=== PATIENT | male | born 1955 | race Caucasian/White ===

== ENCOUNTER 2018-12-09 14:08 | Emergency (ER) | payer BC ==
--- NOTE | 2018-12-09 14:25 | EDM.PDOC ---
ED HPI GENERAL MEDICAL PROBLEM - General Chief Complaint: Back Pain or Injury Stated Complaint: BACK PAIN Time Seen by Provider: 12/09/18 14:10 Source of Information: Reports: Patient History Limitations: Reports: No Limitations - History of Present Illness INITIAL COMMENTS - FREE TEXT/NARRATIVE: History of present illness: []Patient has had back pain from the base of his neck to the tip of his toes since 2006 when he was working on transmission in his car and injured his back. He is followed by Dr. Ngo and did not go to work yesterday because of the worsening pain went to her office today and found out that she was out for 2 weeks. He is requesting a work note. Patient has no new symptoms denies any incontinence. Review of systems: As per history of present illness and below otherwise all systems reviewed and negative. Past medical history: As per history of present illness and as reviewed below otherwise noncontributory. Surgical history: As per history of present illness and as reviewed below otherwise noncontributory. Social history: No reported history of drug or alcohol abuse. Family history: As per history of present illness and as reviewed below otherwise noncontributory. Physical exam: General: Well developed, well nourished in NAD HEENT: Atraumatic, normocephalic, pupils reactive, negative for conjunctival pallor or scleral icterus, mucous membranes moist, throat clear, neck supple, nontender, trachea midline. Lungs: Clear to auscultation, breath sounds equal bilaterally, chest nontender. Heart: S1S2, regular, negative for clicks, rubs, or JVD. Abdomen: NABS, Soft, nondistended, nontender. Negative for masses or hepatosplenomegaly. Negative for costovertebral tenderness. Pelvis: Stable nontender. Genitourinary: Deferred. Rectal: Deferred. Extremities: Atraumatic, negative for cords or calf pain. Neurovascular unremarkable. Neuro: Awake, alert, oriented. Cranial nerves II through XII unremarkable. Cerebellum unremarkable. Motor and sensory unremarkable throughout. Exam nonfocal. Skin:warm and dry Diagnostics: None Therapeutics: Toradol, Norflex ED Course: imProved Impression: Chronic back pain Prescriptions: Tramadol Plan: Follow-up with Dr. Shah or primary care. Definitive disposition and diagnosis as appropriate pending reevaluation and review of above. back Pain Score (Numeric/FACES): 10 - Related Data Allergies Allergy/AdvReac Type Severity Reaction Status Date / Time No Known Allergies Allergy Verified 12/09/18 14:15 Home Meds: Home Meds Lisinopril 40 mg PO DAILY 12/09/18 [History] Sildenafil Citrate [Sildenafil] 25 mg PO ASDIRECTED PRN MDD 1 12/09/18 [History] traMADol HCl [Tramadol HCl] 50 mg PO DAILY 12/09/18 [History] Past Medical History Cardiovascular History: Reports: High Cholesterol, Hypertension - Past Surgical History Cardiovascular Surgical History: Reports: Other (See Below) Other Cardiovascular Surgeries/Procedures: angioplasty Musculoskeletal Surgical History: Reports: Arthroscopic Knee, Other (See Below) Other Musculoskeletal Surgeries/Procedures:: arthroscopic right knee surgery, open left knee surgery. ED ROS GENERAL - Review of Systems Review Of Systems: ROS reveals no pertinent complaints other than HPI. ED EXAM,LOWER BACK PAIN/INJURY - Physical Exam Exam: See Below (See history of present illness) Course - Vital Signs Last Recorded V/S: Last Vital Signs Temp 97.6 F 12/09/18 14:16 Pulse 84 12/09/18 14:16 Resp 18 12/09/18 14:16 BP 160/86 H 12/09/18 14:16 Pulse Ox 98 12/09/18 14:16 - Orders/Labs/Meds Orders: Active Orders 24 hr Category Date Time Status Orphenadrine [Norflex] Med 12/09/18 14:45 Active 60 mg IM Q12H Medication Orders Orphenadrine Citrate (Norflex) 60 mg IM Q12H RILEY Last Admin: 12/09/18 15:06 Dose: 60 mg Meds: Medications Generic Name Dose Route Start Last Admin Trade Name Freq PRN Reason Stop Dose Admin Orphenadrine Citrate 60 mg 12/09/18 14:45 12/09/18 15:06 Norflex IM 60 mg Q12H RILEY Administration Discontinued Medications Generic Name Dose Route Start Last Admin Trade Name Freq PRN Reason Stop Dose Admin Ketorolac Tromethamine 60 mg 12/09/18 14:32 12/09/18 14:45 Toradol IM 12/09/18 14:33 60 mg ONETIME ONE Administration Departure - Departure Time of Disposition: 15:39 Disposition: Home, Self-Care 01 Condition: Good Clinical Impression: Chronic back pain - Discharge Information *PRESCRIPTION DRUG MONITORING PROGRAM REVIEWED*: No *COPY OF PRESCRIPTION DRUG MONITORING REPORT IN PATIENT [place]: No Referrals: Amira Ni PA [Primary Care Provider] - Forms: ED Department Discharge Additional Instructions: The following information is given to patients seen in the emergency department who are being discharged to home. This information is to outline your options for follow-up care. We provide all patients seen in our emergency department with a follow-up referral. The need for follow-up, as well as the timing and circumstances, are variable depending upon the specifics of your emergency department visit. If you don't have a primary care physician on staff, we will provide you with a referral. We always advise you to contact your personal physician following an emergency department visit to inform them of the circumstance of the visit and for follow-up with them and/or the need for any referrals to a consulting specialist. The emergency department will also refer you to a specialist when appropriate. This referral assures that you have the opportunity for follow-up care with a specialist. All of these measure are taken in an effort to provide you with optimal care, which includes your follow-up. Under all circumstances we always encourage you to contact your private physician who remains a resource for coordinating your care. When calling for follow-up care, please make the office aware that this follow-up is from your recent emergency room visit. If for any reason you are refused follow-up, please contact the [facility] Emergency Department at and asked to speak to the emergency department charge nurse. [facility] [address] [place] [id number] - My Orders Last 24 Hours: My Active Orders 12/09/18 14:45 Orphenadrine [Norflex] 60 mg IM Q12H - Assessment/Plan Last 24 Hours: My Active Orders 12/09/18 14:45 Orphenadrine [Norflex] 60 mg IM Q12H
[2018-12-09] MEDS ORDERED: Ketorolac 60 MG/2 ML SDV IM ONE (14:32)
== END 2018-12-09 15:50 | disposition home or self-care (01) ==
LOC: MW.ED 14:08
DX: G89.29 Other chronic pain (principal); M54.9 Dorsalgia, unspecified; I10 Essential (primary) hypertension; E78.00 Pure hypercholesterolemia, unspecified; Z79.899 Other long term (current) drug therapy; F17.210 Nicotine dependence, cigarettes, uncomplicated
CPT/HCPCS: 96372; 99283; J1885; J2360

== ENCOUNTER 2019-04-03 11:02 | Day surgery (SDC) | payer BC ==
[2019-04-03] MEDS ORDERED: Ropivacaine 0.5% 5 MG/ML 30 ML SDV ONE (11:12)
[2019-04-03] MEDS ORDERED: Lidocaine 2% 5 ML SDV ONE (11:12)
[2019-04-03] MEDS ORDERED: Betamethasone Acetate/Betamethasone Sod Phosphate 30 MG/5 ML MDV ONE (11:12)
[2019-04-03] MEDS ORDERED: Iopamidol 200-M 10 ML vial ITHECAL ONE (11:13)
--- NOTE | 2019-04-03 20:01 | OR ---
SURGEON: Raquel Jules D.O. DATE OF PROCEDURE: 04/03/2019 PRIMARY SURGEON: Raquel Jules D.O. OPERATING ROOM STAFF PRESENT: 1. Ubaldo Hebert RN. 2. Peace Robles RN. 3. RT Jasen. WOUND CLASS: I. PREOPERATIVE DIAGNOSES: 1. Lumbar degenerative disk disease, L3-4, L4-5, and L5-S1. 2. Lumbar spinal stenosis. 3. Lumbar sacral spondylosis 4. lumbar scoliosis. Postoperative Diagnoses: same PREOPERATIVE PAIN: 8/10. POSTOPERATIVE PAIN: 0/10. FOLLOWUP: In the Pain Clinic in 3 weeks. SCREENING QUESTIONS: The patient answered "no" to all of the following questions: 1. Are you allergic to latex? 2. Do you have a bleeding disorder? 3. Do you have any current local or systemic infections? 4. Are you taking any anti-inflammatories or blood thinners? 5. Do you have any joint replacements, heart valve replacements, or a pacemaker? DESCRIPTION OF PROCEDURE: The patient had the procedure thoroughly explained including all possible risks, benefits and alternatives. Consent was signed in my clinic indicating understanding and willingness to proceed. The patient presented to [facility] [place] and was escorted to the dressing room to disrobe and change into a hospital gown. Preoperative vital signs were taken and stable. The patient reported that Valium was taken prior to the procedure. The patient was brought back to the procedure room and placed in the prone position on the procedure room table. A pillow was placed under the hips in order to flatten the lumbar lordosis. The back was prepped with ChloraPrep and sterilely draped. All personnel in the operating room were dressed in appropriate attire including surgical scrubs, head and shoe covers. This was to ensure sterility while in the treatment room. During the time fluoroscopy was in use, all personnel in the operating room wore lead myrick with thyroid collars. Sterile technique was used throughout the procedure. The patient was awake and conversant throughout the procedure. There was no evidence of infection at the site of needle insertion. Skeletal landmarks were identified under fluoroscopy for the caudal epidural. Skin was anesthetized with 2% lidocaine with a sterile 27-gauge 1.5 inch needle. Then a 20-gauge Tuohy epidural needle was placed in the epidural space with loss of resistance technique under fluoroscopic guidance. No heme, cerebrospinal fluid, or paresthesias were noted. Isovue-200 contrast dye was injected in 0.2 cubic centimeter increments and seen to outline the epidural space in both AP and lateral views. There was no intravascular flow pattern observed under live fluoroscopy. Then 12 milligrams of Celestone was slowly injected after negative aspiration. The patient tolerated the procedure well. Vital signs were stable during and after the procedure. The staff escorted the patient to the recovery area and the patient was released in stable condition after a brief stay in the recovery room monitored by the nurse. The patient was given both oral and written discharge and follow up instructions with recommendation to follow up given for 2-3 weeks. The patient voiced understanding including understanding of those signs and symptoms that would require emergency care. The patient knows how to contact the office if there are any additional problems or questions in the meantime. CARLOS EDUARDO / SUNSHINE /[phone] JANIE
== END 2019-04-03 13:03 ==
LOC: MW.SDS 11:02
PROVIDERS: ATTEND Anesthesiology
DX: M51.17 Intervertebral disc disorders with radiculopathy, lumbosacral region (principal); M47.27 Other spondylosis with radiculopathy, lumbosacral region; M48.07 Spinal stenosis, lumbosacral region; M41.86 Other forms of scoliosis, lumbar region; M12.88 Other specific arthropathies, not elsewhere classified, other specified site; M79.18 Myalgia, other site; M50.90 Cervical disc disorder, unspecified, unspecified cervical region; I10 Essential (primary) hypertension; I44.7 Left bundle-branch block, unspecified; I42.9 Cardiomyopathy, unspecified; E78.5 Hyperlipidemia, unspecified; Z87.891 Personal history of nicotine dependence; Z79.899 Other long term (current) drug therapy
CPT/HCPCS: 62323; J0702; J2795; Q9966; J2001

== ENCOUNTER 2019-10-26 07:56 | Emergency (ER) | payer BC ==
--- NOTE | 2019-10-26 08:14 | EDM.PDOC ---
ED HPI GENERAL MEDICAL PROBLEM - General Chief Complaint: Back Pain or Injury Stated Complaint: HURT BACK Time Seen by Provider: 10/26/19 08:05 - History of Present Illness INITIAL COMMENTS - FREE TEXT/NARRATIVE: HISTORY AND PHYSICAL: History of present illness: Patient 64-year-old male with history of chronic back pain his head spinal fusion presents status post fall which he slipped on the ice injuring his lower back and numbness weakness incontinence or retention bowel or bladder Review of systems: As per history of present illness and below otherwise all systems reviewed and negative. Past medical history: As per history of present illness and as reviewed below otherwise noncontributory. Surgical history: As per history of present illness and as reviewed below otherwise noncontributory. Social history: No reported history of drug or alcohol abuse. Family history: As per history of present illness and as reviewed below otherwise noncontributory. Physical exam: HEENT: Atraumatic, normocephalic, pupils reactive, negative for conjunctival pallor or scleral icterus, mucous membranes moist, throat clear, neck supple, nontender, trachea midline. Lungs: Clear to auscultation, breath sounds equal bilaterally, chest nontender. Heart: S1S2, regular, negative for clicks, rubs, or JVD. Abdomen: Soft, nondistended, nontender. Negative for masses or hepatosplenomegaly. Negative for costovertebral tenderness. Pelvis: Stable nontender. Genitourinary: Deferred. Rectal: Deferred. Extremities: Atraumatic, negative for cords or calf pain. Neurovascular unremarkable. Neuro: Awake, alert, oriented. Cranial nerves II through XII unremarkable. Cerebellum unremarkable. Motor and sensory unremarkable throughout. Exam nonfocal. Back: Patient paravertebral tenderness level lumbar spinal vertebral body or point tenderness motor and sensory inferiorly are unremarkable patient is able stand on his toes back on his heels Diagnostics: X-ray lumbosacral spine Therapeutics: None Impression: #1 observation status post fall #2 lumbar strain/contusion #3 history of chronic back Definitive disposition and diagnosis as appropriate pending reevaluation and review of above. back Pain Score (Numeric/FACES): 9 - Related Data Allergies Allergy/AdvReac Type Severity Reaction Status Date / Time No Known Allergies Allergy Verified 12/09/18 14:15 Home Meds: Home Meds Sildenafil Citrate [Sildenafil] 25 mg PO ASDIRECTED PRN MDD 1 12/09/18 [History] Hydrocodone/Acetaminophen [Hydrocodon-Acetaminoph 7.5-325] 10/26/19 [History] Past Medical History HEENT History: Reports: None Cardiovascular History: Reports: High Cholesterol, Hypertension Respiratory History: Reports: None Gastrointestinal History: Reports: None Genitourinary History: Reports: None Musculoskeletal History: Reports: Back Pain, Chronic Neurological History: Reports: None Psychiatric History: Reports: None Endocrine/Metabolic History: Reports: None Hematologic History: Reports: None Immunologic History: Reports: None Oncologic (Cancer) History: Reports: None Dermatologic History: Reports: None - Infectious Disease History Infectious Disease History: Reports: None - Past Surgical History Cardiovascular Surgical History: Reports: Other (See Below) Other Cardiovascular Surgeries/Procedures: angioplasty Musculoskeletal Surgical History: Reports: Arthroscopic Knee, Other (See Below) Other Musculoskeletal Surgeries/Procedures:: arthroscopic right knee surgery, open left knee surgery. Social & Family History - Family History Family Medical History: Noncontributory - Caffeine Use Caffeine Use: Reports: Coffee ED ROS GENERAL - Review of Systems Review Of Systems: Comprehensive ROS is negative, except as noted in HPI. ED EXAM, GENERAL - Physical Exam Exam: See Below (See dictation) Course - Vital Signs Text/Narrative:: Patient's x-ray demonstrates a intrapedicular screw fracture at the S1 level attempts to reach primary surgeon [id number] were unsuccessful I did discuss with local orthopedic surgery who agrees with rest pain medication within neurologically intact patient with no other acute findings. I discussed all the patient understands and agrees he'll be discharged home on pain medication given a copy of his disc as well as a report from follow-up with this spine surgeon. He's returned for persistent or worsening pain any numbness weakness incontinence or retention bowel or bladder any other neurological signs or symptoms as discussed Last Recorded V/S: Last Vital Signs Temp 36.6 C 10/26/19 08:12 Pulse 108 H 10/26/19 08:12 Resp 16 10/26/19 08:12 BP 153/82 H 10/26/19 08:12 Pulse Ox 99 10/26/19 08:12 - Orders/Labs/Meds Meds: Medications Discontinued Medications Generic Name Dose Route Start Last Admin Trade Name Freq PRN Reason Stop Dose Admin Hydrocodone Bitart/Acetaminophen 1 tab 10/26/19 09:11 [place] 325-10 Mg PO 10/26/19 09:12 ONETIME ONE Departure - Departure Time of Disposition: 08:13 Disposition: Home, Self-Care 01 Condition: Good Clinical Impression: Fall, Back injury - Discharge Information Referrals: PCP,Unknown [Primary Care Provider] - Forms: ED Department Discharge Additional Instructions: The following information is given to patients seen in the emergency department who are being discharged to home. This information is to outline your options for follow-up care. We provide all patients seen in our emergency department with a follow-up referral. The need for follow-up, as well as the timing and circumstances, are variable depending upon the specifics of your emergency department visit. If you don't have a primary care physician on staff, we will provide you with a referral. We always advise you to contact your personal physician following an emergency department visit to inform them of the circumstance of the visit and for follow-up with them and/or the need for any referrals to a consulting specialist. The emergency department will also refer you to a specialist when appropriate. This referral assures that you have the opportunity for followup care with a specialist. All of these measure are taken in an effort to provide you with optimal care, which includes your followup. Under all circumstances we always encourage you to contact your private physician who remains a resource for coordinating your care. When calling for followup care, please make the office aware that this follow-up is from your recent emergency room visit. If for any reason you are refused follow-up, please contact the [facility] emergency department at and asked to speak to the emergency department charge nurse. Follow-up spine surgeon as discussed [place] as prescribed return as needed as discussed
--- NOTE | 2019-10-26 08:47 | CR ---
Indication: Fall. Surgery August 08, 2019. Technique: AP, lateral, and spot views of the lumbar spine were obtained. Comparison: April 22, 2019. Findings: Posterior intrapedicular screws and posterior fusion rods are now identified at L4-L5-S1. Intervertebral disc spacers are identified at these levels as well. A minimally displaced fracture through this screw of the bright S1 intrapedicular screw is identified. There is no evident other evidence of hardware failure. Impression: Fracture of the screw extending through the left S1 pedicle no postoperative change. Dictated by Macrina Altamirano MD @ Oct 26 2019 8:44AM Signed by Dr. Macrina Altamirano @ Oct 26 2019 8:46AM
[2019-10-26] MEDS ORDERED: Acetaminophen/HYDROcodone 325-10 MG Tab PO ONE (09:11)
== END 2019-10-26 09:55 | disposition home or self-care (01) ==
LOC: MW.ED 07:56
DX: S39.012A Strain of muscle, fascia and tendon of lower back, initial encounter (principal); G89.29 Other chronic pain; M54.9 Dorsalgia, unspecified; I10 Essential (primary) hypertension; W00.0XXA Fall on same level due to ice and snow, initial encounter
CPT/HCPCS: 72100; 99284; A9270; 99283

== ENCOUNTER 2021-03-08 04:29 | Emergency (ER) | payer BC ==
--- NOTE | 2021-03-08 04:34 | EDM.PDOC ---
ED HPI GENERAL MEDICAL PROBLEM - General Stated Complaint: LEFT HAND FINGER INJURY Time Seen by Provider: 03/08/21 04:30 Source of Information: Reports: Patient History Limitations: Reports: No Limitations - History of Present Illness INITIAL COMMENTS - FREE TEXT/NARRATIVE: 65 yo male presents for left index finger laceration 3 hours prior to arrival. He accidentally cut his left index finger with a chief executive officer knife. His tetanus is up-to-date. ROS: A 10-point review of systems, other than pertinent positives and negatives as stated per HPI, is otherwise negative Past medical history: No additional pertinent history Past Surgical history: No additional pertinent history Social history: No additional pertinent history Family history: No additional pertinent history PHYSICAL EXAM General: AOx4, GCS = 15, No distress HEENT: dry mucous membrane Neck: supple, no meningismus, no Kernig or Brudzinski Cardiac: S1S2 RRR Respiratory: CTAB, no crackles or rales, no wheezing Abdomen: Soft, nontender, no rebound or guarding, nondistended, no pulsatile mass. Back: nontender Musculoskeletal: NVI distally, superficial linear laceration to the left index finger distal phalanx on the palmar surface, normal range of motion at DIP/MCP/PIP joint. No tendon involvement. Neuro: No focal deficits left index finger Pain Score (Numeric/FACES): 5 - Related Data Allergies Allergy/AdvReac Type Severity Reaction Status Date / Time No Known Allergies Allergy Verified 03/08/21 04:41 Home Meds: Home Meds Sildenafil Citrate [Sildenafil] 25 mg PO ASDIRECTED PRN MDD 1 12/09/18 [History] Hydrocodone/Acetaminophen [Hydrocodon-Acetaminoph 7.5-325] 10/26/19 [History] Past Medical History HEENT History: Reports: None Cardiovascular History: Reports: High Cholesterol, Hypertension Respiratory History: Reports: None Gastrointestinal History: Reports: None Genitourinary History: Reports: None Musculoskeletal History: Reports: Back Pain, Chronic Neurological History: Reports: None Psychiatric History: Reports: None Endocrine/Metabolic History: Reports: None Hematologic History: Reports: None Immunologic History: Reports: None Oncologic (Cancer) History: Reports: None Dermatologic History: Reports: None - Infectious Disease History Infectious Disease History: Reports: None - Past Surgical History Cardiovascular Surgical History: Reports: Other (See Below) Other Cardiovascular Surgeries/Procedures: angioplasty Musculoskeletal Surgical History: Reports: Arthroscopic Knee, Other (See Below) Other Musculoskeletal Surgeries/Procedures:: arthroscopic right knee surgery, open left knee surgery. Social & Family History - Family History Family Medical History: No Pertinent Family History - Caffeine Use Caffeine Use: Reports: Coffee ED ROS GENERAL - Review of Systems Review Of Systems: See Below (see dictation) ED EXAM, GENERAL - Physical Exam Exam: See Below (see dictation) ED GENERAL MEDICAL PROCEDURES - Laceration/Wound Repair Left Distal Ventral Digit - 2nd (Index) Lac/wound length in cm: 2.6 Appearance: Superficial Distal NVT: Neuro & Vascular Intact, No Tendon Injury Anesthetic Type: Digital Local Anesthesia - Lidocaine (Xylocaine): 1% Plain Local Anesthetic Volume: 5cc Skin Prep: Saline Saline irrigation (cc's): 10 Exploration/Debridement/Repair: Wound Explored, Explored to Base Closed with: Sutures, Steri-Strips Suture Size: 6-0 # of Sutures: 4 Tetanus Status Addressed: No Complications: No Progress/Comments: dressed with bulky kerlex dressing Course - Vital Signs Last Recorded V/S: Last Vital Signs Temp 98.4 F 03/08/21 04:38 Pulse 104 H 03/08/21 04:38 Resp 16 03/08/21 04:38 BP 128/83 03/08/21 04:38 Pulse Ox 95 03/08/21 04:38 - Orders/Labs/Meds Orders: Active Orders 24 hr Category Date Time Status Lidocaine 1% [Xylocaine 1%] Med 03/08/21 04:41 Once 10 ml INJECT ONETIME ONE - Re-Assessments/Exams Free Text/Narrative Re-Assessment/Exam: 03/08/21 04:59 After suture repair in the ER, the patient improved and is currently stable for discharge. I performed a repeat exam and did not appreciate new abnormal findings. Patient exhibits normal vital signs and has a normal gait on road test. I advised the patient to return to the ER for reevaluation if symptoms worsened, including fever, worsening pain, or any other worrisome symptoms. I instructed the patient to follow up with their PCP within 10 days for suture removal. MEDICAL DECISION MAKING: I reviewed the patients past medical records, lab and radiographic findings. I discussed the case with the patient. My differential diagnosis included: finger laceration. Departure - Departure Time of Disposition: 05:03 Disposition: Home, Self-Care 01 Condition: Good Clinical Impression: Finger laceration - Discharge Information *PRESCRIPTION DRUG MONITORING PROGRAM REVIEWED*: Not Applicable *COPY OF PRESCRIPTION DRUG MONITORING REPORT IN PATIENT [place]AL[place]: Not Applicable Instructions: Laceration Care, Adult Referrals: PCP,None [Primary Care Provider] - 2 Weeks Forms: ED Department Discharge Additional Instructions: The need for follow-up, as well as the timing and circumstances, are variable depending upon the specifics of your emergency department visit. If you don't have a primary care physician on staff, we will provide you with a referral. We always advise you to contact your personal physician following an emergency department visit to inform them of the circumstance of the visit and for follow-up with them and/or the need for any referrals to a consulting specialist. The emergency department will also refer you to a specialist when appropriate. This referral assures that you have the opportunity for follow-up care with a specialist. All of these measure are taken in an effort to provide you with optimal care, which includes your follow-up. Under all circumstances we always encourage you to contact your private physician who remains a resource for coordinating your care. When calling for follow-up care, please make the office aware that this follow-up is from your recent emergency room visit. If for any reason you are refused follow-up, please contact the [facility] Emergency Department at and asked to speak to the emergency department charge nurse. If you do not have a primary care doctor, please follow up with the clinics below in 10 days for suture removal. Nereida Hussein [facility] [address] [place] [address], [place] [address] [facility] [address] [place] [address] Sepsis Event Note (ED) - Focused Exam Vital Signs: Vital Signs Temp Pulse Resp BP Pulse Ox 03/08/21 04:38 98.4 F 104 H 16 128/83 95 - My Orders Last 24 Hours: My Active Orders 03/08/21 04:41 Lidocaine 1% [Xylocaine 1%] 10 ml INJECT ONETIME ONE - Assessment/Plan Last 24 Hours: My Active Orders 03/08/21 04:41 Lidocaine 1% [Xylocaine 1%] 10 ml INJECT ONETIME ONE
[2021-03-08] MEDS ORDERED: Lidocaine 1% 10 ML MDV INJECT ONE (04:41)
== END 2021-03-08 05:10 | disposition home or self-care (01) ==
LOC: MW.ED 04:29
DX: S61.211A Laceration without foreign body of left index finger without damage to nail, initial encounter (principal); I10 Essential (primary) hypertension; W26.0XXA Contact with knife, initial encounter
CPT/HCPCS: 12002; 99282; 99282-25